=== PATIENT | male | born 1970 | race American Indian/Alaskan Native ===

== ENCOUNTER 2022-03-28 16:52 | Inpatient (IN) | payer SELFPAY ==
[2022-03-28] MEDS ORDERED: ASPIRIN 325 MG TAB PO ONE (18:16)
--- NOTE | 2022-03-28 19:22 | XRay Report ---
CHEST 2 VIEWS INDICATION / CLINICAL INFORMATION: chest pain. FINDINGS: SUPPORT DEVICES: None. HEART / MEDIASTINUM: No significant abnormality. LUNGS / PLEURA: No significant pulmonary or pleural abnormality. No pneumothorax. ADDITIONAL FINDINGS: No significant additional findings. IMPRESSION: 1. No acute findings. Signer Name: Conner Aiken MD Signed: 03/28/2022 7:17 PM Workstation Name: [id number]
[2022-03-28 19:36] LABS: Basophils # (Auto) 0.1 K/mm3 (0.0-0.1); Basophils % (Auto) 0.7 % (0.0-1.8); Eosinophils # (Auto) 0.1 K/mm3 (0.0-0.4); Eosinophils % (Auto) 0.6 % (0.0-4.3); Hematocrit 43.4 % (35.5-45.6); Hemoglobin 14.6 gm/dl (11.8-15.2); Lymphocytes # (Auto) 2.1 K/mm3 (1.2-5.4); Lymphocytes % (Auto) 25.2 % (13.4-35.0); Mean Corpuscular HGB Conc 34 % (32-34); Mean Corpuscular Volume 90 fl (84-94); Monocytes # (Auto) 0.7 K/mm3 (0.0-0.8); Monocytes % (Auto) 8.2 % (0.0-7.3); Platelet Count 218 K/mm3 (140-440); Red Blood Count 4.81 M/mm3 (3.65-5.03); Red Cell Distribution Width 15.1 % (13.2-15.2)
[2022-03-28 20:00] LABS: Alanine Aminotransferase 11 units/L (7-56); Albumin 4.5 g/dL (3.9-5); BUN/Creatinine Ratio 10; Blood Urea Nitrogen 11 mg/dL (9-20); Calcium 9.7 mg/dL (8.4-10.2); Hemolysis Index 10
[2022-03-28] MEDS ORDERED: ONDANSETRON 4 MG/2 ML INJ IV ONE (21:28)
[2022-03-28] MEDS ORDERED: fentaNYL 100 MCG/2 ML INJ IV ONE (21:28)
[2022-03-28] MEDS ORDERED: NITROGLYCERIN 2% OINT 1 GM TP ONE (21:28)
--- NOTE | 2022-03-28 21:33 | Emergency Department Report ---
HPI - General Chief Complaint: Chest Pain Time Seen by Provider: 03/28/22 21:16 - HPI HPI: Room 21 Patient is a 51-year-old male present with chief complaint of chest pain. Patient states for the past month has had intermittent left-sided chest pain de scribed as sharp in nature. Patient states the pain was initially intermittent but for the past 2 weeks has been constant. Patient admits to shortness of breath, diaphoresis and nausea without vomiting. Patient is an occasional cough for the past 2 weeks productive of green sputum. Patient denies history of fever. Patient denies recent flights/long car trips. Patient is to [facility]. Patient currently gives his pain score of 9/10. Patient states he believes he had a stress test approximate 1 year ago but never had a cardiac catheterization ED Past Medical Hx - Past Medical History Previous Medical History?: No - Surgical History Past Surgical History?: No - Family History Family history: no significant - Social History Smoking Status: Current Every Day Smoker (1/7 pack/day) Substance Use Type: Alcohol (Occasional), Marijuana ED Review of Systems ROS: Stated complaint: CHEST PAIN Other details as noted in HPI Constitutional: diaphoresis Eyes: denies: eye pain ENT: denies: throat pain Respiratory: shortness of breath Cardiovascular: chest pain Endocrine: no symptoms reported Gastrointestinal: nausea. denies: vomiting Genitourinary: denies: dysuria Musculoskeletal: denies: back pain Neurological: denies: headache Physical Exam - Physical Exam Vital Signs: Vital Signs 03/28/22 18:14 Temperature 98.4 F Pulse Rate 73 Respiratory 18 Rate Blood Pressure 119/74 [Right] O2 Sat by Pulse 96 Oximetry Physical Exam: GENERAL: The patient is well-developed well-nourished male lying on stretcher not appearing to be in acute distress. [] HEENT: Normocephalic. Atraumatic. Extraocular motions are intact. Patient has moist mucous membranes. NECK: Supple. Trachea midline CHEST/LUNGS: Clear to auscultation. There is no respiratory distress noted. HEART/CARDIOVASCULAR: Regular. There is no tachycardia. There is no gallop rub or murmur. ABDOMEN: Abdomen is soft, nontender. Patient has normal bowel sounds. There is no abdominal distention. SKIN: There is no rash. There is no edema. There is no diaphoresis. NEURO: The patient is awake, alert, and oriented. The patient is cooperative. The patient has no focal neurologic deficits. The patient has normal speech. GCS 15 MUSCULOSKELETAL: There is no evidence of acute injury. ED Course Vital Signs 03/28/22 18:14 Temperature 98.4 F Pulse Rate 73 Respiratory 18 Rate Blood Pressure 119/74 [Right] O2 Sat by Pulse 96 Oximetry ED Medical Decision Making - Lab Data Result diagrams: 03/28/22 19:13 03/28/22 19:13 Laboratory Tests 03/28/22 03/28/22 03/28/22 19:13 19:13 21:40 WBC 8.5 RBC 4.81 Hgb 14.6 Hct 43.4 MCV 90 MCH 30 MCHC 34 RDW 15.1 Plt Count 218 Lymph % (Auto) 25.2 [place] % (Auto) 8.2 H Eos % (Auto) 0.6 Baso % (Auto) 0.7 Lymph # (Auto) 2.1 [place] # (Auto) 0.7 Eos # (Auto) 0.1 Baso # (Auto) 0.1 Seg Neutrophils % 65.3 Seg Neutrophils # 5.5 D-Dimer < 135.00 Sodium 140 Potassium 4.9 Chloride 103.6 Carbon Dioxide 27 Anion Gap 14 BUN 11 Creatinine 1.1 Estimated GFR > 60 BUN/Creatinine Ratio 10 Glucose 77 Calcium 9.7 Total Bilirubin < 0.20 AST 15 ALT 11 Alkaline Phosphatase 51 Troponin T < 0.010 Total Protein 6.7 Albumin 4.5 Albumin/Globulin Ratio 2.0 - EKG Data -: EKG Interpreted by Me EKG shows normal: sinus rhythm, axis Rate: normal (61 bpm) - EKG Data When compared to previous EKG there are: previous EKG unavailable Interpretation: nonspecific ST-T wave delmi (Wellen sign V3 V4), LVH - Radiology Data Radiology results: report reviewed (Chest x-ray), image reviewed (Chest x-ray) interpreted by me: Chest x-ray-no definite focal infiltrates, no pneumothorax [facility] [address] [place] [address] XRay Report Signed Patient: JOSE ANTONIO CHAO MR#: [id number] : 1970 Acct:[id number] Age/Sex: 51 / M ADM Date: 03/28/22 Loc: ED Attending Dr: Ordering Physician: ED DOC, Date of Service: 03/28/22 Procedure(s): XR chest routine 2V Accession Number(s): [id number] cc: ED MD NELL Fluoro Time In Minutes: CHEST 2 VIEWS INDICATION / CLINICAL INFORMATION: chest pain. FINDINGS: SUPPORT DEVICES: None. HEART / MEDIASTINUM: No significant abnormality. LUNGS / PLEURA: No significant pulmonary or pleural abnormality. No pneumothorax. ADDITIONAL FINDINGS: No significant additional findings. IMPRESSION: 1. No acute findings. Signer Name: Conner Aiken MD Signed: 03/28/2022 7:17 PM Workstation Name: [id number] Transcribed By: Dictated By: Conner Aiken MD Electronically Authenticated By: Conner Aiken MD Signed Date/Time: 03/28/221916 DD/ 16 TD/TT: - Differential Diagnosis ACS, pericarditis, PE, GERD Critical care attestation.: If time is entered above; I have spent that time in minutes in the direct care of this critically ill patient, excluding procedure time. ED Disposition Clinical Impression: Chest pain Disposition: ADMITTED INPATIENT Is pt being admited?: Yes Does the pt Need Aspirin: Yes Condition: Fair Instructions: Nonspecific Chest Pain, Adult Time of Disposition: 22:53 (Care transferred to hospitalist (Dr Carrion)) Heart Score - HEART Score History: Moderately suspicious EKG: Non-specific Age: 45-65 Risk factors: 1-2 risk factors Troponin: < normal limit HEART Score: 4 - EKG Read Time Time EKG Completed: 18:24 EKG Read Time: 18:28
--- NOTE | 2022-03-28 22:18 | History and Physical Report ---
History of Present Illness Date of examination: 03/28/22 Date of admission: 03/28/2022 Chief complaint: Chest Pain History of present illness: 51-year-old -Malian male with no significant past medical history except a [id number] history of tobacco abuse presenting to the emergency room today complaining of left-sided chest pain which has been ongoing for about a month. Chest pain has been intermittent but has gotten worse over the past few days. Pain is said to be sharp in nature and radiating to was the left shoulder and left upper extremity. He has had associated nausea and headache. He denies any diaphoresis, denies any palpitation, denies any abdominal pain. There has been no known relieving or exacerbating factor. Patient has had some occasional cough over the past 2 weeks productive of some slightly greenish sputum. He denies any fever or chills. He states he may have had a stress test about a year ago which was within normal limits. Work-up in the emergency room today, lab tests, EKG and chest x-ray has been unremarkable. Patient is being admitted for chest pain work-up. Past History Past Medical History: No medical history Social history: smoking (Current daily smoker), alcohol abuse (Occasional alcohol intake) Family history: no significant family history Medications and Allergies Allergies Allergy/AdvReac Type Severity Reaction Status Date / Time No Known Allergies Allergy Verified 03/28/22 21:17 Review of Systems Constitutional: no fever, no chills Ears, nose, mouth and throat: no nasal congestion, no sore throat Cardiovascular: chest pain, no palpitations Respiratory: shortness of breath, no cough Gastrointestinal: nausea, no abdominal pain, no vomiting, no diarrhea Genitourinary Male: no dysuria, no hematuria, no nocturia Musculoskeletal: no neck pain, no low back pain Integumentary: no rash, no pruritis Neurological: headaches, no confusion Psychiatric: no anxiety, no depression Endocrine: no polyphagia, no polydipsia, no polyuria Exam - Constitutional Vitals: Temp Pulse Resp BP Pulse Ox 99 F 56 L 20 117/68 98 03/28/22 21:40 03/28/22 21:40 03/28/22 21:40 03/28/22 21:40 03/28/22 21:40 General appearance: Present: no acute distress, well-nourished - EENT Eyes: Present: PERRL, EOM intact. Absent: scleral icterus ENT: hearing intact, clear oral mucosa, dentition normal - Neck Neck: Present: supple, normal ROM - Respiratory Respiratory effort: normal Respiratory: bilateral: CTA - Cardiovascular Rhythm: regular Heart Sounds: Present: S1 & S2. Absent: gallop, systolic murmur, diastolic murmur, rub, click - Extremities Extremities: no ischemia, pulses intact, pulses symmetrical, No edema, normal temperature, normal color, Full ROM Peripheral Pulses: within normal limits - Abdominal General gastrointestinal: Present: soft, non-tender, non-distended, normal bowel sounds. Absent: mass - Integumentary Integumentary: Present: clear, warm, dry, normal turgor. Absent: rash - Musculoskeletal Musculoskeletal: strength equal bilaterally - Psychiatric Psychiatric: appropriate mood/affect, intact judgment & insight, memory intact, cooperative - Neurologic Neurologic: CNII-XII intact, no focal deficits, moves all extremities HEART Score - HEART Score History: Moderately suspicious EKG: Non-specific Age: 45-65 Risk factors: 1-2 risk factors Troponin: Troponin T < 0.010 ng/mL (0.00-0.029) 03/28/22 19:13 Troponin: < normal limit HEART Score: 4 Results - Labs CBC & Chem 7: 03/28/22 19:13 03/28/22 19:13 Labs: Abnormal lab results 03/28/22 Range/Units 19:13 [place] % (Auto) 8.2 H (0.0-7.3) % Assessment and Plan - Patient Problems (1) Chest pain Current Visit: Yes Status: Acute Plan to address problem: Patient admitted and placed on telemetry. We will check serial cardiac enzymes. Patient placed on daily aspirin, sublingual nitroglycerin and IV morphine as needed for chest pain. We will schedule for stress test. (2) Tobacco abuse Current Visit: Yes Status: Acute Plan to address problem: Patient counseled on quitting tobacco abuse. Will offer nicotine patch if needed (3) DVT prophylaxis Current Visit: Yes Status: Acute Plan to address problem: Patient placed on subcutaneous heparin. (4) Full code status Current Visit: Yes Status: Acute Plan to address problem: Patient is full code.
[2022-03-28] MEDS ORDERED: MORPHINE 2 MG/1 ML INJ IV PRN (22:32)
[2022-03-28] MEDS ORDERED: traMADol 50 MG TAB PO PRN (22:32)
[2022-03-28] MEDS ORDERED: ACETAMINOPHEN 325 MG TAB PO PRN ×2 (22:32)
[2022-03-28] MEDS ORDERED: MORPHINE 4 MG/1 ML INJ IV PRN ×2 (22:32)
[2022-03-28] MEDS ORDERED: ONDANSETRON 4 MG/2 ML INJ IV PRN (22:32)
[2022-03-28] MEDS ORDERED: MAGNESIUM HYDROXIDE (MOM) ORAL LIQD UDC PO PRN (22:32)
[2022-03-29] MEDS ORDERED: ASPIRIN 325 MG TAB PO ONE (01:00)
[2022-03-29] MEDS: HEPARIN 5,000 UNIT/1 ML VIAL SUB-Q SCH ×2 (05:41→15:26)
[2022-03-29 06:28] LABS: Basophils % (Auto) 0.5 % (0.0-1.8); Eosinophils # (Auto) 0.1 K/mm3 (0.0-0.4); Eosinophils % (Auto) 1.4 % (0.0-4.3); Hematocrit 42.4 % (35.5-45.6); Hemoglobin 13.8 gm/dl (11.8-15.2); Lymphocytes # (Auto) 2.8 K/mm3 (1.2-5.4); Lymphocytes % (Auto) 37.6 % (13.4-35.0); Mean Corpuscular HGB Conc 33 % (32-34); Mean Corpuscular Volume 91 fl (84-94); Monocytes # (Auto) 0.7 K/mm3 (0.0-0.8); Monocytes % (Auto) 9.1 % (0.0-7.3); Platelet Count 198 K/mm3 (140-440); Red Blood Count 4.67 M/mm3 (3.65-5.03); Red Cell Distribution Width 14.5 % (13.2-15.2)
[2022-03-29 06:45] LABS: BUN/Creatinine Ratio 9; Blood Urea Nitrogen 9 mg/dL (9-20); Calcium 9.2 mg/dL (8.4-10.2); Hemolysis Index 19
--- NOTE | 2022-03-29 08:05 | Progress Note ---
Assessment and Plan Assessment and plan: History of present illness: 51-year-old -[place] male with no significant past medical history except a [id number] history of tobacco abuse presenting to the emergency room today complaining of left-sided chest pain which has been ongoing for about a month. Chest pain has been intermittent but has gotten worse over the past few days. Pain is said to be sharp in nature and radiating to was the left shoulder and left upper extremity. He has had associated nausea and headache. He denies any diaphoresis, denies any palpitation, denies any abdominal pain. There has been no known relieving or exacerbating factor. Patient has had some occasional cough over the past 2 weeks productive of some slightly greenish sputum. He denies any fever or chills. He states he may have had a stress test about a year ago which was within normal limits. Work-up in the emergency room today, lab tests, EKG and chest x-ray has been unremarkable. Patient is being admitted for chest pain work-up. Hospital course: Assessment and Plan: #Acute coronary syndrome -Admitted to telemetry Serial troponin negative x4 - EKG: nonspecific st-t wave changes. Chest x-ray: no acute findings -NM stress ordered for this AM. # Nicotine Abuse. -81-[id number]-[id number] smoking history - behavioral health counseling administered which included education on benefits of smoking cessation as well as options for quitting. +15 min. #Advance care planning Disease education conducted, care plan discussed, diagnoses discussed, prognosis discussed, patient is full code, patient acknowledges understanding and agree with care plan, +30 minutes. Hospitalist Physical - Physical exam Narrative exam: Physical Exam: VITAL SIGNS: Reviewed. GENERAL: The patient appears normally developed, Vital signs as documented. HEAD: No signs of head trauma. EYES: Pupils are equal. Extraocular motions intact. EARS: Hearing grossly intact. MOUTH: Oropharynx is normal. NECK: No adenopathy, no JVD. CHEST: Chest with clear breath sounds bilaterally. No wheezes, rales, or rhon chi. CARDIAC: Regular rate and rhythm. S1 and S2, without murmurs, gallops, or rubs. VASCULAR: No Edema. Peripheral pulses normal and equal in all extremities. ABDOMEN: Soft, non tender and non distended. No rebound or guarding, and no masses palpated. Bowel Sounds normal. MUSCULOSKELETAL: Good range of motion of all major joints. Extremities without clubbing, cyanosis or edema. NEUROLOGIC EXAM: Alert and oriented x 4. no focal sensory or strength deficits. PSYCHIATRIC: Mood normal. SKIN: detail exam as documented in skin assessment - Constitutional Vitals: Temp Pulse Resp BP Pulse Ox 98.0 F 53 L 14 109/59 98 03/29/22 07:26 03/29/22 07:26 03/29/22 07:26 03/29/22 07:26 03/29/22 07:26 General appearance: Present: no acute distress, well-nourished HEART Score - HEART Score EKG: Non-specific Age: 45-65 Risk factors: 1-2 risk factors Troponin: Troponin T < 0.010 ng/mL (0.00-0.029) 03/29/22 05:50 Troponin: < normal limit Results - Labs CBC & Chem 7: 03/29/22 05:50 03/29/22 05:50 Labs: Laboratory Last Values WBC 7.3 K/mm3 (4.5-11.0) 03/29/22 05:50 RBC 4.67 M/mm3 (3.65-5.03) 03/29/22 05:50 Hgb 13.8 gm/dl (11.8-15.2) 03/29/22 05:50 Hct 42.4 % (35.5-45.6) 03/29/22 05:50 MCV 91 fl (84-94) 03/29/22 05:50 MCH 30 pg (28-32) 03/29/22 05:50 MCHC 33 % (32-34) 03/29/22 05:50 RDW 14.5 % (13.2-15.2) 03/29/22 05:50 Plt Count 198 K/mm3 (140-440) 03/29/22 05:50 Lymph % (Auto) 37.6 % (13.4-35.0) H 03/29/22 05:50 [place] % (Auto) 9.1 % (0.0-7.3) H 03/29/22 05:50 Eos % (Auto) 1.4 % (0.0-4.3) 03/29/22 05:50 Baso % (Auto) 0.5 % (0.0-1.8) 03/29/22 05:50 Lymph # (Auto) 2.8 K/mm3 (1.2-5.4) 03/29/22 05:50 [place] # (Auto) 0.7 K/mm3 (0.0-0.8) 03/29/22 05:50 Eos # (Auto) 0.1 K/mm3 (0.0-0.4) 03/29/22 05:50 Baso # (Auto) 0.0 K/mm3 (0.0-0.1) 03/29/22 05:50 Seg Neutrophils % 51.4 % (40.0-70.0) 03/29/22 05:50 Seg Neutrophils # 3.8 K/mm3 (1.8-7.7) 03/29/22 05:50 D-Dimer < 135.00 ng/mlDDU (0-234) 03/28/22 21:40 Sodium 141 mmol/L (137-145) 03/29/22 05:50 Potassium 4.5 mmol/L (3.6-5.0) 03/29/22 05:50 Chloride 105.9 mmol/L (98-107) 03/29/22 05:50 Carbon Dioxide 25 mmol/L (22-30) 03/29/22 05:50 Anion Gap 15 mmol/L 03/29/22 05:50 BUN 9 mg/dL (9-20) 03/29/22 05:50 Creatinine 1.0 mg/dL (0.8-1.3) 03/29/22 05:50 Estimated GFR > 60 ml/min 03/29/22 05:50 BUN/Creatinine Ratio 9 % 03/29/22 05:50 Glucose 80 mg/dL (75-100) 03/29/22 05:50 Calcium 9.2 mg/dL (8.4-10.2) 03/29/22 05:50 Total Bilirubin < 0.20 mg/dL (0.1-1.2) 03/28/22 19:13 AST 15 units/L (5-40) 03/28/22 19:13 ALT 11 units/L (7-56) 03/28/22 19:13 Alkaline Phosphatase 51 units/L (35-129) 03/28/22 19:13 Troponin T < 0.010 ng/mL (0.00-0.029) 03/29/22 05:50 Total Protein 6.7 g/dL (6.3-8.2) 03/28/22 19:13 Albumin 4.5 g/dL (3.9-5) 03/28/22 19:13 Albumin/Globulin Ratio 2.0 % 03/28/22 19:13 [place]/IV: Voiding Method Toilet Active Medications - Current Medications Current Medications: Generic Name Dose Route Start Last Admin Trade Name Freq PRN Reason Stop Dose Admin Acetaminophen 650 mg 03/28/22 22:32 Acetaminophen 325 Mg Tab PO Q4H PRN Pain MILD(1-3)/Fever >100.5/GUTIERRES Aspirin 325 mg 03/29/22 10:00 Aspirin Ec 325 Mg Tab PO QDAY ROLDAN Heparin Sodium (Porcine) 5,000 unit 03/29/22 06:00 03/29/22 05:41 Heparin 5,000 Unit/1 Ml Vial SUB-Q 5,000 unit Q8HR ROLDAN Administration Magnesium Hydroxide 30 ml 03/28/22 22:32 Magnesium Hydroxide (Mom) Oral Liqd Udc PO Q4H PRN Constipation Morphine Sulfate 2 mg 03/28/22 22:32 Morphine 2 Mg/1 Ml Inj IV Q4H PRN Pain, Moderate (4-6) Morphine Sulfate 4 mg 03/28/22 22:32 Morphine 4 Mg/1 Ml Inj IV Q4H PRN Pain , Severe (7-10) Morphine Sulfate 2 mg 03/28/22 22:32 Morphine 4 Mg/1 Ml Inj IV Q5MIN PRN Chest Pain unrelieved by NTG Ondansetron HCl 4 mg 03/28/22 22:32 Ondansetron 4 Mg/2 Ml Inj IV Q8H PRN Nausea And Vomiting Sodium Chloride 10 ml 03/29/22 10:00 Sodium Chloride 0.9% 10 Ml Flush Syringe IV BID ROLDAN Sodium Chloride 10 ml 03/28/22 22:32 Sodium Chloride 0.9% 10 Ml Flush Syringe IV PRN PRN LINE FLUSH Tramadol HCl 50 mg 03/28/22 22:32 Tramadol 50 Mg Tab PO Q6H PRN Pain, Moderate (4-6)
[2022-03-29] MEDS ORDERED: REGADENOSON 0.4 MG/5 ML INJ IV ONE (08:31)
[2022-03-29] MEDS ORDERED: ASPIRIN EC 325 MG TAB PO SCH (10:00)
--- NOTE | 2022-03-29 13:48 | Electrocardiograph Report ---
[facility] Test Date: 2022-03-28 Test Time: 18:24:56 Pat Name: JOSE ANTONIO CHAO Department: Room: A483 1 Gender: M [employer]: ORAL : 1970 Requested By: DUKE YOUNG Order Number: [id number] Reading MD: Lizette Durant Measurements Intervals [place] Rate: 61 P: 59 DE: 130 QRS: 69 QRSD: 81 T: -32 QT: 377 QTc: 381 Interpretive Statements Sinus rhythm Left ventricular hypertrophy Nonspecific T wave changes No previous ECG available for comparison Electronically Signed On 03-29-2022 13:47:56 EDT by Lizette Durant
--- NOTE | 2022-03-29 15:36 | Discharge Summary ---
Providers - Providers Date of Admission: 03/28/22 22:32 Date of discharge: 03/29/22 Attending physician: TEOFILO RIDLEY MD 03/28/22 Consult to Cardiac Rehabilitation [CONS] Routine Reason For Exam: Phase I 03/28/22 22:32 Consult to Cardiology [CONS] Routine Consulting Provider: JAGDEEP BRIDGES Reason For Exam: Chest pain Primary care physician: RADHA MARMOLEJO Hospitalization Reason for admission: chest pain Condition: Fair Hospital course: History of present illness: 51-year-old -[place] male with no significant past medical history except a 61-nysn-hask history of tobacco abuse presenting to the emergency room today complaining of left-sided chest pain which has been ongoing for about a month. Chest pain has been intermittent but has gotten worse over the past few days. Pain is said to be sharp in nature and radiating to was the left shoulder and left upper extremity. He has had associated nausea and headache. He denies any diaphoresis, denies any palpitation, denies any abdominal pain. There has been no known relieving or exacerbating factor. Patient has had some occasional cough over the past 2 weeks productive of some slightly greenish sputum. He denies any fever or chills. He states he may have had a stress test about a year ago which was within normal limits. Work-up in the emergency room today, lab tests, EKG and chest x-ray has been unremarkable. Patient is being admitted for chest pain work-up. Hospital course: Mr. Mora was admitted for chest pain and was worked up for acute coronary syndrome this hospital admission. Serological markers with troponin/CK-MB were negative this hospitalization. EKG showed nonspecific ST-T changes. Chest x- ray was negative. D-dimer was nonelevated. Nuclear med stress test ordered and was negative for ischemia. Patient was counseled on smoking cessation. He was also advised to initiate aspirin 81 mg p.o. daily for primary prevention of MN. This medication was e-transmitted to his pharmacy at [facility]. He was advised to follow-up with his primary care doctor in 3 to 5 days. Assessment and Plan: #Acute coronary syndrome -Admitted to telemetry Serial troponin negative x4 - EKG: nonspecific st-t wave changes. Chest x-ray: no acute findings -NM stress ordered for this AM. # Nicotine Abuse. -19-fpnu-pjus smoking history - behavioral health counseling administered which included education on benefits of smoking cessation as well as options for quitting. +15 min. #Advance care planning Disease education conducted, care plan discussed, diagnoses discussed, prognosis discussed, patient is full code, patient acknowledges understanding and agree with care plan, +30 minutes. Disposition: 01 HOME / SELF CARE / HOMELESS Final Discharge Diagnosis (Prints w/discharge instructions): chest pain, acute coronary syndrome, nicotine abuse Time spent for discharge: 35 Core Measure Documentation - Palliative Care Palliative Care/ Comfort Measures: Not Applicable - Core Measures Any of the following diagnoses?: none Exam - Constitutional Vitals: Temp Pulse Resp BP Pulse Ox 98.0 F 53 L 14 109/59 96 03/29/22 07:26 03/29/22 10:00 03/29/22 07:26 03/29/22 07:26 03/29/22 11:47 Plan Follow up with: RADHA MARMOLEJO MD [Primary Care Provider] - 3-5 Days Prescriptions: Aspirin EC [Halfprin EC] 81 mg PO QDAY 30 Days #30 tablet.
[2022-03-29 16:08] VITALS: BP 123/68
--- NOTE | 2022-03-29 16:13 | Consultation ---
History of Present Illness Consult date: 03/29/22 Requesting physician: REHAN COLE Consult reason: chest pain History of present illness: Patient 51-year-old male who reports past medical history of tobacco abuse and substance abuse who reports to the ED with a complaint of chest pain that has been going on for about a month. Patient states that he has been having any sharp/throbbing chest pain that was initially intermittent however within the last several days has become worse and constant. Patient reports chest pain is worse when smoking and when taking a deep breath. Patient reports that pain is often when he massages the area of his pain. Of note patient had negative cardiac enzymes x4. Patient denies shortness of breath, nausea, vomiting, diaphoresis. Patient is previously unknown to our practice. Cardiology is consulted for chest pain. Past History Past Medical History: No medical history Social history: smoking (Current daily smoker), alcohol abuse (Occasional alcohol intake), other (polysubstance abuse) Family history: no significant family history Medications and Allergies Allergies Allergy/AdvReac Type Severity Reaction Status Date / Time No Known Allergies Allergy Verified 03/28/22 21:17 Home Medications Medication Instructions Recorded Confirmed Last Taken Type Aspirin EC [Halfprin EC] 81 mg PO QDAY 30 Days #30 tablet. 03/29/22 Unknown Rx Active Meds: Active Medications Acetaminophen (Acetaminophen 325 Mg Tab) 650 mg PO Q4H PRN PRN Reason: Pain MILD(1-3)/Fever >100.5/GUTIERRES Aspirin (Aspirin Ec 325 Mg Tab) 325 mg PO QDAY [facility] Last Admin: 03/29/22 12:00 Dose: Not Given Heparin Sodium (Porcine) (Heparin 5,000 Unit/1 Ml Vial) 5,000 unit SUB-Q Q8HR [facility] Last Admin: 03/29/22 15:26 Dose: 5,000 unit Magnesium Hydroxide (Magnesium Hydroxide (Mom) Oral Liqd Udc) 30 ml PO Q4H PRN PRN Reason: Constipation Morphine Sulfate (Morphine 2 Mg/1 Ml Inj) 2 mg IV Q4H PRN PRN Reason: Pain, Moderate (4-6) Morphine Sulfate (Morphine 4 Mg/1 Ml Inj) 4 mg IV Q4H PRN PRN Reason: Pain , Severe (7-10) Morphine Sulfate (Morphine 4 Mg/1 Ml Inj) 2 mg IV Q5MIN PRN PRN Reason: Chest Pain unrelieved by NTG Ondansetron HCl (Ondansetron 4 Mg/2 Ml Inj) 4 mg IV Q8H PRN PRN Reason: Nausea And Vomiting Sodium Chloride (Sodium Chloride 0.9% 10 Ml Flush Syringe) 10 ml IV BID [facility] Last Admin: 03/29/22 11:59 Dose: 10 ml Sodium Chloride (Sodium Chloride 0.9% 10 Ml Flush Syringe) 10 ml IV PRN PRN PRN Reason: LINE FLUSH Tramadol HCl (Tramadol 50 Mg Tab) 50 mg PO Q6H PRN PRN Reason: Pain, Moderate (4-6) Review of Systems All systems: negative Physical Examination Vital Signs Temp Pulse Resp BP Pulse Ox 98.4 F 73 18 119/74 96 03/28/22 18:14 03/28/22 18:14 03/28/22 18:14 03/28/22 18:14 03/28/22 18:14 General appearance: no acute distress HEENT: Positive: Normocephaly Neck: Positive: trachea midline Cardiac: Positive: Reg Rate and Rhythm Lungs: Positive: Normal Breath Sounds Neuro: Positive: Grossly Intact Abdomen: Positive: Soft, Active Bowel Sounds Skin: Negative: Rash, Suspicious Lesions, Ulceration Extremities: Present: upper extr. pulses. Absent: edema Results 03/29/22 05:50 03/29/22 05:50 Cardiac Enzymes 03/28/22 Range/Units 19:13 AST 15 (5-40) units/L CBC 03/28/22 03/29/22 Range/Units 19:13 05:50 WBC 8.5 7.3 (4.5-11.0) K/mm3 RBC 4.81 4.67 (3.65-5.03) M/mm3 Hgb 14.6 13.8 (11.8-15.2) gm/dl Hct 43.4 42.4 (35.5-45.6) % Plt Count 218 198 (140-440) K/mm3 Lymph # (Auto) 2.1 2.8 (1.2-5.4) K/mm3 [place] # (Auto) 0.7 0.7 (0.0-0.8) K/mm3 Eos # (Auto) 0.1 0.1 (0.0-0.4) K/mm3 Baso # (Auto) 0.1 0.0 (0.0-0.1) K/mm3 Comprehensive Metabolic Panel 03/28/22 03/29/22 Range/Units 19:13 05:50 Sodium 140 141 (137-145) mmol/L Potassium 4.9 4.5 (3.6-5.0) mmol/L Chloride 103.6 105.9 (98-107) mmol/L Carbon Dioxide 27 25 (22-30) mmol/L BUN 11 9 (9-20) mg/dL Creatinine 1.1 1.0 (0.8-1.3) mg/dL Glucose 77 80 (75-100) mg/dL Calcium 9.7 9.2 (8.4-10.2) mg/dL AST 15 (5-40) units/L ALT 11 (7-56) units/L Alkaline Phosphatase 51 (35-129) units/L Total Protein 6.7 (6.3-8.2) g/dL Albumin 4.5 (3.9-5) g/dL - Imaging and Cardiology Echo: report reviewed EKG interpretations - Telemetry EKG Rhythm: Sinus Rhythm - EKG Sinus rhythms and dysrhythmias: sinus rhythm Chamber hypertrophy or enlargement: left ventricular hypertro Assessment and Plan Patient 51-year-old male who reports past medical history of tobacco abuse and substance abuse who reports to the ED with a complaint of chest pain that has been going on for about a month Tobacco abuse Polysubstance abuse Echo 03/28/2022-EF 50 to 55% right ventricle systolic function is normal right ventricle is dilated. Mild aortic regurgitation. No pericardial effusion Preliminary results Lexiscan MPI stress test 03/29/2022-normal stress test with no signs of ischemia Plan: EKG shows sinus rhythm 61 with LVH nonspecific T abnormalities. No acute ischemic changes. Troponins negative x4. At time of interview patient currently chest pain-free Patient had negative Lexiscan stress test this a.m. Patient had normal echocardiogram Cardiac status otherwise stable Discussed with patient importance of tobacco and substance cessation Patient follow with her primary provider 1 to 2 weeks after discharge. Patient may also follow up with our group 1-2 weeks after discharge Patient seen and conjunction with Dr. Baca who agrees with this plan of care - Patient Problems (1) Chest pain Current Visit: Yes Status: Acute (2) Tobacco abuse Current Visit: Yes Status: Acute
--- NOTE | 2022-03-30 10:20 | Electrocardiograph Report ---
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
--- NOTE | 2022-03-30 10:22 | Electrocardiograph Report ---
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
--- NOTE | 2022-03-31 01:44 | Treadmill Report ---
DATE OF SERVICE: 03/29/2022 NUCLEAR PERFUSION SCAN REFERRING PHYSICIAN: Hospitalist sanya. PROTOCOL: The patient was assessed in postabsorptive state, given 10 mCi of technetium at rest. The patient had rest imaging. The patient underwent Lexiscan stress test per standard protocol. At peak stress, the patient given 26 mCi technetium. Shortly thereafter, the patient had stress imaging. Raw imaging reveals mild GI artifact, no significant motion artifact. SPECT imaging examined carefully in horizontal long axis, vertical long axis, short axis views. There was normal mitral uptake of radioisotope in all port segments. No evidence of a significant fixed or reversible perfusion defect suggestive of prior infarction or ischemia. Gated wall motion reveals normal LV function calculated at 50%. No TID. CONCLUSIONS: 1. Normal myocardial perfusion scan without evidence of active ischemia or prior infarction. 2. Normal left ventricular systolic performance without evidence of transient ischemic dilatation or stress-induced segmental wall motion abnormalities. TID: [id number] RECEIPT: [id number] SB/VICKIE
== END 2022-03-29 19:05 | disposition home or self-care (01) | DRG 313 ==
LOC: ED 16:52 → 4A 22:32
PROVIDERS: ADMIT Internal Medicine Geriatric Medicine; ATTEND Internal Medicine
DX: R07.89 Other chest pain (principal); F17.200 Nicotine dependence, unspecified, uncomplicated; F19.10 Other psychoactive substance abuse, uncomplicated
CPT/HCPCS: 36415; 71046; 78452; 80048; 80053; 84484; 85025; 85379; 93005; 93017; 93306; 96374; 96375; 99285; 99406; G0378; A9502; C8929; J1644; J2405; J2785; J3010